=== PATIENT | female | born 1945 | race Caucasian/White ===

== ENCOUNTER → 2017-05-01 | Outpatient (REF) ==
[~2017-05-01] MED LIST: FERROUS SU325 MG/TAB PO; FOLIC ACID PO; HYDRALAZINE HCL25 MG PO; PRILOSEC 20MG20 MG PO; VITAMIN C250250 MG PO; ZOCOR40 MG PO
== END ==
LOC: ZLAB.WCH 11:12
DX: Z01.89 Encounter for other specified special examinations (principal)

== ENCOUNTER 2021-02-21 10:05 | Day surgery (SDC) | payer MEDICARE, OTHER ==
[2021-02-21] VITALS (13 sets, daily range): BP systolic 130–145; BP diastolic 61–80; PULSE 64–75; TEMP 97.7–98.6
[~2021-02-21] VITALS: Ht 172.7 cm; Wt 90.1 kg
[2021-02-21] MEDS ORDERED: EXCEDRIN1 TAB PO (11:23)
[2021-02-21] MEDS ORDERED: CITRACAL-D3 ER1 EACH PO (11:24)
[2021-02-21] MEDS ORDERED: ZOCOR 40MG40 MG PO (11:25)
[2021-02-21] MEDS ORDERED: KLOR-CON SPRIN10 MEQ PO (11:26)
[2021-02-21] MEDS ORDERED: MAXZIDE-25MG TA1 TAB PO (11:27)
[2021-02-21] MEDS ORDERED: PROTONIX 40MG T40 MG PO (11:28)
--- NOTE | 2021-02-21 17:23 | NUR ---
PT TO ROOM 330 PER BED WITH REPORT FROM [facility] PACU @0364. PT IS A/O X3, LUNGS CTA, 6 LAP SITES CDI WITH BANDAIDS. VSS ASSESSMENTS COMPLETE. PT HAVING SHOULDER PAIN. IV TO LF FOREARM.
--- NOTE | 2021-02-21 22:23 | NUR ---
PATIENT ALERT AND ORIENTED X4. PAIN TOLERABLE 3-/10. DENIES NAUSEA/VOMITING. AMBULATED TO BATHROOM WITH SBA. PATIENT OUT OF BED TO CHAIR. POST UP VITAL SIGNS COMPLETED. PATIENT TOLERATED CLEAR LIQUIDS DIET. ABDOMINAL DRESSING X6 CLEAN DRY AND INTACT. HYPOACTIVE BOWEL SOUNDS X 4 QUADRANTS. WILL CONTINUE TO MONITOR.
[2021-02-22 03:24] VITALS: BP 111/50; PULSE 61; TEMP 97.8
--- NOTE | 2021-02-22 06:23 | NUR ---
PATIENT AMBULATE AROUND UNIT X2 WITH STEADY GAIT. + FLATUS, DENIES NAUSEA/VOMITING. MILD PAIN TO ABDOMEN AND LEFT SHOULDER. REFUSED PAIN MEDICATION. WILL CONTINUE TO MONITOR.
[2021-02-22 07:22] VITALS: BP 106/45; PULSE 53; TEMP 97.6
--- NOTE | 2021-02-22 08:51 | NUR ---
PT RESTING IN BED. MINIMAL INCISIONAL PAIN. PT C/O GAS PAIN IN SHOULDERS. ENCOURAGED AMBULATION, PT ATE 100% OF FULL LIQUID TRAY. PT DENIES NEEDS. ABDOMINAL INCISIONS CDI WITH BANDAIDS OVER INCISIONS. PLAN ON DISCHARGE LATER TODAY.
--- NOTE | 2021-02-22 09:30 | NUR ---
Sw met with the pt to discuss discharge plan. Pt stated her preference to rturn home with , Zack (ph# [phone] or [phone]), once medically stable. Pt is independent on all ADL's and does not use any DME. The pt PCP is Dr.Jennifer Klein of [facility] and uses [facility] for short term use or [facility] for detention use of medications. Pt reports no difficulties obtaining her meds. The pt informed Sw that she does have a DPOA-HC and it was given to a nurse. Sw confirmed that it was in the binder chart. No other needs stated at this time. Sw to await further recommendations and follow up as needed. Discharge Plan: Home with , Zack.
--- NOTE | 2021-02-22 09:55 | NUR ---
Initial visit; Patient thanked Blister Pack Operator for looking in on her, offering God's blessings and states she is receptive to Blister Pack Operator keeping her in Blister Pack Operator's prayers.
[2021-02-22 11:20] VITALS: BP 133/66; PULSE 55; TEMP 97.8
[2021-02-22] MEDS ORDERED: NORCO 325 MG-51 TAB PO (12:38)
[2021-02-22] MEDS ORDERED: ZOFRAN 4MG T4 MG/TAB PO (12:39)
--- NOTE | 2021-02-22 15:00 | NUR ---
DISCHARGE INSTRUCTIONS PROVIDED TO PATIENT AND . QUESTIONS SOLICITED AND ANSWERED. PT LEFT AMBULATORY.
== END 2021-02-22 15:03 | disposition home or self-care (01) ==
LOC: SDCO 10:05 → SURG 17:14 → SDCO 02-22 15:03
DX: K44.9 Diaphragmatic hernia without obstruction or gangrene (principal); K31.89 Other diseases of stomach and duodenum; I10 Essential (primary) hypertension; E78.00 Pure hypercholesterolemia, unspecified; K21.9 Gastro-esophageal reflux disease without esophagitis; E78.5 Hyperlipidemia, unspecified; Z79.899 Other long term (current) drug therapy
CPT/HCPCS: OP; A9284; C1781; J0690; J1100; J1885; J2405; J2704; J3010; J7120

== ENCOUNTER 2021-03-16 06:44 | Inpatient (IN) | payer MEDICARE, OTHER ==
[~2021-03-16] VITALS: Ht 167.6 cm; Wt 82.5 kg
[~2021-03-16 06:44] MED LIST changes: +CITRACAL-D3 ER1 EACH PO; +EXCEDRIN1 TAB PO; +KLOR-CON SPRIN10 MEQ PO; +MAXZIDE-25MG TA1 TAB PO; +NORCO 325 MG-51 TAB PO; +PROTONIX 40MG T40 MG PO; +ZOCOR 40MG40 MG PO; +ZOFRAN 4MG T4 MG/TAB PO
--- NOTE | 2021-03-16 09:15 | NUR ---
Patient admitted to room 323. Spouse at bedside. Med rec, and admission assessment completed. Iv to Rac. Patietn dressed in gown. No current vomiting. Buddy reyes
--- NOTE | 2021-03-16 09:25 | NUR ---
notifed about patient arrival to room 323. He states he will place orders.
[2021-03-16 12:36] VITALS: BP 128/68; PULSE 62; TEMP 98.1
--- NOTE | 2021-03-16 12:54 | NUR ---
Patient up to the bathroom, denies the need for pain or nausea medication. Ivf started per orders.
[2021-03-16 13:35] LABS: BASO # 0.1 (0.0-0.2); BASO % 0.9 % (0.0-2.0); EOS % 0.2 % (0-4.0); GRAN # 4.7 (1.4-6.5); GRAN % 72.3 % (42.2-75.2); HEMATOCRIT 45.8 % (37.0-47.0); HEMOGLOBIN 15.5 g/dl (12.5-16.0); LYMPH # 1.3 (1.2-3.4); LYMPH % 19.2 % (20.0-51.0); MEAN CELL VOLUME 91 fl (80.0-100.0); MEAN CORPUSCULAR HEMOGLOBIN 31 pg (27.0-31.0); MEAN CORPUSCULAR HGB CONC 34 g/dl (33.0-37.0); MEAN PLATELET VOLUME 11.9 fl (7.4-10.4); MONO # 0.5 (0.1-0.6); MONO % 7.2 % (1.7-9.3); PLATELET COUNT 176 K/mm3 (130-400); RED BLOOD COUNT 5.04 M/mm3 (4.10-5.30); REDCELL DISTRIBUTION WIDTH-CV 12.3 % (11.5-14.5)
[2021-03-16 13:42] LABS: ALBUMIN 4.2 gm/dL (3.5-5.0); BILIRUBIN,TOTAL 1.5 mg/dL (0.0-1.0); CALCIUM 10.2 mg/dL (8.4-10.2); CREATININE, serum 0.98 (0.52-1.25); POTASSIUM 3.2 mmol/L (3.4-5.0); TOTAL PROTEIN 7.4 gm/dL (6.4-8.2)
[2021-03-16 16:00] VITALS: BP 147/75; PULSE 61; TEMP 97.9
--- NOTE | 2021-03-16 16:35 | NUR ---
rounded, orders obtained. gastrograffin swallow study completed. Spoke with [facility] about PPN orders. Potassium replacement started. Patietn Npo with sips and chips. Will monitor.
--- NOTE | 2021-03-16 19:12 | NUR ---
Patient resting in bed. Using her IS per orders. She remains NPo with ice chips. Denies nausea. New IVF started to [facility] for PPN and lipids. Iv in ac continues to ivf and k+ replacement. bedside report to manan
[2021-03-16 19:51] VITALS: BP 135/64; PULSE 57; TEMP 97.3
--- NOTE | 2021-03-16 20:30 | NUR ---
PT IN BED. IS ALERT AND ORIENTED X4. HAS IVF TO RIGHT AC INFUSING WITHOUT PROBLEM, PPN W/LIPIDS INFUSING TO LEFT FOREARM WITHOUT PROBLEM. DENIES PAIN, NO NAUSEA AT THIS TIME. TAKING SIPS/CHIPS DESIRED. WILL MONITOR FOR CHANGES.
[2021-03-16 23:39] VITALS: BP 133/65; PULSE 68; TEMP 97.6
--- NOTE | 2021-03-17 04:00 | NUR ---
UP TO BATHROOM WITH ASSIST OF 1, GAIT STEADY. VOIDS AND BACK TO BED. IVF TO RIGHT AC AND PROCALAMINE TO LEFT FOREARM INFUSING WITHOUT PROBLEM.
[2021-03-17 04:55] VITALS: BP 134/73; PULSE 67; TEMP 98.7
[2021-03-17 07:09] LABS: ALBUMIN 3.4 gm/dL (3.5-5.0); CALCIUM 9.2 mg/dL (8.4-10.2); CREATININE, serum 0.78 (0.52-1.25); MAGNESIUM 1.9 mg/dL (1.6-2.3); PHOSPHOROUS 3.2 mg/dL (2.5-4.5); POTASSIUM 3.6 mmol/L (3.4-5.0)
[2021-03-17 07:17] LABS: BASO # 0.1 (0.0-0.2); BASO % 1.1 % (0.0-2.0); EOS # 0.1 (0.0-0.7); EOS % 0.9 % (0-4.0); GRAN # 3.9 (1.4-6.5); GRAN % 68.3 % (42.2-75.2); HEMATOCRIT 41.5 % (37.0-47.0); LYMPH # 1.3 (1.2-3.4); LYMPH % 22.4 % (20.0-51.0); MEAN CELL VOLUME 90 fl (80.0-100.0); MEAN CORPUSCULAR HEMOGLOBIN 31 pg (27.0-31.0); MEAN CORPUSCULAR HGB CONC 34 g/dl (33.0-37.0); MEAN PLATELET VOLUME 12.4 fl (7.4-10.4); MONO # 0.4 (0.1-0.6); MONO % 6.9 % (1.7-9.3); PLATELET COUNT 145 K/mm3 (130-400); RED BLOOD COUNT 4.59 M/mm3 (4.10-5.30); REDCELL DISTRIBUTION WIDTH-CV 12.2 % (11.5-14.5)
[2021-03-17 07:24] VITALS: BP 128/65; PULSE 64; TEMP 98.3
--- NOTE | 2021-03-17 09:21 | NUR ---
Pt doing well this morning with minimal complaints. She reports feeling better than when coming in. Still tolerating the ice chips and sips. IV to her right AC started leaking. Will restart new IV. Dr Wiggins has been in to see patient, no new orders, will continue with ice chips for today.
--- NOTE | 2021-03-17 11:19 | NUR ---
resting inbed, bedside shift report received from CARI Alamo
[2021-03-17 12:00] VITALS: BP 139/68; PULSE 65; TEMP 98.5
--- NOTE | 2021-03-17 12:25 | NUR ---
in bed watching TV, heart rate strong and regular, lungs CTA, bowel sounds present, states she is not passing flatus but had very small BM, abdomen soft and obese, peripheral pulses present in 4 extremities, teacher vocational training equal, denies needs
--- NOTE | 2021-03-17 13:30 | NUR ---
in bed and appears to be sleeping, resp quiet and easy
[2021-03-17 15:28] VITALS: BP 134/78; PULSE 67; TEMP 98.8
--- NOTE | 2021-03-17 16:15 | NUR ---
watching TV and denies needs
--- NOTE | 2021-03-17 18:51 | NUR ---
bedde shift report given to CARI Muro
[2021-03-17 19:50] VITALS: BP 141/65; PULSE 59; TEMP 97.7
[2021-03-18] VITALS (7 sets, daily range): BP systolic 129–150; BP diastolic 62–70; PULSE 51–61; TEMP 97–99.1
--- NOTE | 2021-03-18 04:53 | NUR ---
RESTING QUIETLY. NO N/V. PT DENIES PAIN. ACTIVE BOWEL TONES. UP, INDEPENDENT IN ROOM.
--- NOTE | 2021-03-18 07:55 | NUR ---
Patient resting in bed. Minimal needs. Denies pain and nausea. Patient denies having flatus, but is belching. Voiding without troubles, denies having BMs. Ivf & PPN per orders. Scds. Will monitor.
[2021-03-18 08:07] LABS: CALCIUM 9.7 mg/dL (8.4-10.2); CREATININE, serum 0.77 (0.52-1.25); MAGNESIUM 1.9 mg/dL (1.6-2.3); PHOSPHOROUS 3.3 mg/dL (2.5-4.5); POTASSIUM 3.8 mmol/L (3.4-5.0)
--- NOTE | 2021-03-18 12:42 | NUR ---
Plan is to return home with Zack at . Patient reports that they reside in [place] and plan to return there. Patient indicated that she does not need any home health and her will support her care plan. Patient reports that Enrqiu[facility] Klein is her PCP . Patient reports that she is working with other specialist Dr. Pineda, Dr Riddle, Rosalie Lujan. Patient reports that she uses [facility] for short term medications and remote computer terminal operator mdications [facility]. Will follow for additional care concerns.
--- NOTE | 2021-03-18 14:52 | NUR ---
Patient resting in bed. Continues to deny pain & nausea. Patient had a shower, that she reports making her feel much better. Fresh linens provided. K+ replacement. Procalamine per orders. Will contiue to monitor.
--- NOTE | 2021-03-18 18:24 | NUR ---
Patient sitting up in chair watching TV, offered a walk in the halls, she was not interested. Denies pain & nausea. Tolerates ice chips. Will report off to nightnurse
[2021-03-19 03:42] VITALS: BP 138/74; PULSE 51; TEMP 97.7
--- NOTE | 2021-03-19 06:15 | NUR ---
PT DENIES PAIN. NO N/V. AFEBRILE. UP INDEPENDENTLY IN ROOM.
[2021-03-19 07:06] LABS: CALCIUM 9.6 mg/dL (8.4-10.2); CREATININE, serum 0.68 (0.52-1.25); PHOSPHOROUS 3.1 mg/dL (2.5-4.5); POTASSIUM 3.8 mmol/L (3.4-5.0)
[2021-03-19 07:20] VITALS: BP 143/79; PULSE 74; TEMP 97.4
--- NOTE | 2021-03-19 08:15 | NUR ---
Patient resting in bed. Independent to use the bathroom. Procalamine per orders. Will monitor.
--- NOTE | 2021-03-19 10:36 | NUR ---
Initial visit; Patient thanked Primary School Teacher Librarian for looking in on her and keeping her in Primary School Teacher Librarian's prayers.
--- NOTE | 2021-03-19 10:45 | NUR ---
rounded. plan of care reviewed. patient supportive spouse at bedside. k+ protocol dc-iv k+ was burning in patient IV.
[2021-03-19 11:36] VITALS: BP 130/66; PULSE 60; TEMP 97.4
--- NOTE | 2021-03-19 14:05 | NUR ---
Patient sitting up in chair. She tolerated popcicle. Bottled water ordered from kitchen, she does not like out water. Ran pain and nausea. Buddy reyes.
[2021-03-19 16:26] VITALS: BP 131/68; PULSE 59; TEMP 97.7
--- NOTE | 2021-03-19 17:42 | NUR ---
Patient sitting up in chair. She tolerated a glass of chicken broth. Visitiors at bedside. Lipids & procalamine per orders. Ambulated halls ways with patient & she did well. Continues to deny pain & nausea.
--- NOTE | 2021-03-19 19:25 | NUR ---
REPORT RECEIVED FROM NURSE RAI. PATIENT RECEIVED SITTING IN RECINER ALERT AND ORIENTED X4. DENIES ANY DISCOMFORT AT THIS TIME.
[2021-03-19 19:49] VITALS: BP 129/56; PULSE 59; TEMP 98.5
[2021-03-20 00:08] VITALS: BP 134/55; PULSE 52; TEMP 97.4
[2021-03-20 04:10] VITALS: BP 129/57; PULSE 52; TEMP 97.8
[2021-03-20 07:05] LABS: CALCIUM 9.8 mg/dL (8.4-10.2); CREATININE, serum 0.7 (0.52-1.25); MAGNESIUM 2.1 mg/dL (1.6-2.3); PHOSPHOROUS 3.6 mg/dL (2.5-4.5); POTASSIUM 4.1 mmol/L (3.4-5.0)
--- NOTE | 2021-03-20 07:23 | NUR ---
Patient resting in bed. Awake & alert. Patient provided with cranberry juice. She is interested in yogurt this am . Denies nausea. denies pain. Will continue to monitor.
[2021-03-20 08:44] VITALS: BP 133/87; PULSE 63; TEMP 97.5
--- NOTE | 2021-03-20 08:46 | NUR ---
Patient sitting up in chair, I ambulated halls stand by with patient & she did well. Discussed diet advanced to pureed. She does not want anything at this time.
[2021-03-20 09:59] LABS: BASO % 0.1 % (0.0-2.0); GRAN # 5.9 (1.4-6.5); GRAN % 81.6 % (42.2-75.2); HEMATOCRIT 43.9 % (37.0-47.0); HEMOGLOBIN 14.8 g/dl (12.5-16.0); LYMPH # 0.9 (1.2-3.4); MEAN CELL VOLUME 91 fl (80.0-100.0); MEAN CORPUSCULAR HEMOGLOBIN 31 pg (27.0-31.0); MEAN CORPUSCULAR HGB CONC 34 g/dl (33.0-37.0); MEAN PLATELET VOLUME 13.1 fl (7.4-10.4); MONO # 0.3 (0.1-0.6); MONO % 4.7 % (1.7-9.3); PLATELET COUNT 131 K/mm3 (130-400); RED BLOOD COUNT 4.85 M/mm3 (4.10-5.30); REDCELL DISTRIBUTION WIDTH-CV 11.9 % (11.5-14.5)
[2021-03-20 10:03] LABS: ALBUMIN 3.5 gm/dL (3.5-5.0); CALCIUM 9.7 mg/dL (8.4-10.2); CREATININE, serum 0.69 (0.52-1.25); PHOSPHOROUS 3.6 mg/dL (2.5-4.5); POTASSIUM 4.1 mmol/L (3.4-5.0)
--- NOTE | 2021-03-20 11:03 | NUR ---
Practice Performance Manager met with the patient and her . The patient is independent in the room and the discharge plan is to return home with spouse. *Discharge disposition: Home with spouse
--- NOTE | 2021-03-20 12:04 | NUR ---
Patient IV to wrist infiltrated, new IV to be started by warehouse order selector. I spoke to pharmacy they suggested cold pack to infiltration site of procalamine. I spoke to advanced IV services who told me to call pharmacy. Cold pack to wrist. Will monitor.
[2021-03-20 12:25] VITALS: BP 138/79; PULSE 50; TEMP 98.3
--- NOTE | 2021-03-20 15:48 | NUR ---
Patient tried tomato soup and did not tolerated well. She also had a jello & she reports it made her have "foam" again. Called kitchen to bring her a ensure clear. She has tried it and it going to sip on it. She continues to denies pain and nausea though.
[2021-03-20 15:49] VITALS: BP 117/62; PULSE 70; TEMP 98.7
--- NOTE | 2021-03-20 19:32 | NUR ---
Patient sitting up in chair. Aware of plan of care NPO 0000 for egd tmrw. She is tolerating clear liquid ensure taking it slowly. We ambulated halls and she did well. Continue with Procalamine & lipids per orders. Report to saturninourse
[2021-03-20 20:20] VITALS: BP 158/71; PULSE 53; TEMP 97.5
[2021-03-21] VITALS (12 sets, daily range): BP systolic 119–153; BP diastolic 64–90; PULSE 48–68; TEMP 97.3–98.7
--- NOTE | 2021-03-21 06:09 | NUR ---
PATIENT A+OX4, DENIES PAIN. INDEPENDENT IN ROOM. NO VENT OVER NIGHT. VSS, NO NAUSEA/VOMITING. NPO FOR EGD TODAY. CONTINUE ON PROCALAMINE INFUSION. WILL CONTINUE TO MONITOR.
[2021-03-21 06:53] LABS: BASO % 0.1 % (0.0-2.0); GRAN # 5.6 (1.4-6.5); GRAN % 82.4 % (42.2-75.2); HEMATOCRIT 43.9 % (37.0-47.0); HEMOGLOBIN 14.9 g/dl (12.5-16.0); LYMPH # 0.8 (1.2-3.4); MEAN CELL VOLUME 90 fl (80.0-100.0); MEAN CORPUSCULAR HEMOGLOBIN 31 pg (27.0-31.0); MEAN CORPUSCULAR HGB CONC 34 g/dl (33.0-37.0); MEAN PLATELET VOLUME 13.1 fl (7.4-10.4); MONO # 0.3 (0.1-0.6); MONO % 4.8 % (1.7-9.3); PLATELET COUNT 120 K/mm3 (130-400); RED BLOOD COUNT 4.87 M/mm3 (4.10-5.30); REDCELL DISTRIBUTION WIDTH-CV 11.9 % (11.5-14.5)
[2021-03-21 07:03] LABS: ALBUMIN 3.5 gm/dL (3.5-5.0); BILIRUBIN,TOTAL 0.6 mg/dL (0.0-1.0); CALCIUM 9.5 mg/dL (8.4-10.2); CREATININE, serum 0.67 (0.52-1.25); MAGNESIUM 2.1 mg/dL (1.6-2.3); PHOSPHOROUS 3.4 mg/dL (2.5-4.5); POTASSIUM 3.9 mmol/L (3.4-5.0); TOTAL PROTEIN 6.3 gm/dL (6.4-8.2)
[2021-03-21 07:12] LABS: PRE ALBUMIN 27.3 mg/dL (17.6-36.0)
--- NOTE | 2021-03-21 08:00 | NUR ---
PATIENT IS A&O. VSS. DENIES PAIN OR NAUSEA THIS AM. PATIENT SITTING UP IN BEDSIDE CHAIR. PPN INFUSING INTO LEFT HAND IV VIA PUMP. NPO FOR EGD TODAY. CONSENT SIGNED AND ON CHART. HEAD TO TOE ASSESSMENT COMPLETE. INDEPENDENT IN ROOM. CALL LIGHT IN REACH.
--- NOTE | 2021-03-21 12:35 | NUR ---
PATIENT GOING DOWN TO ENDO. CONSENT ON CHART. PRE-OP FLUIDS INFUSING VIA GRAVITY. PATIENT OFF FLOOR. AT BEDSIDE.
--- NOTE | 2021-03-21 14:00 | NUR ---
PATIENT BACK IN ROOM FROM [facility]. CHICKEN AND SOME MEDICATION COATING WAS REPORTED TO BE FOUND CAUGHT IN PATIENT ESOPHAGUS FROM THE LAST TIME SHE ATE, LAST FRIDAY. PATIENT ON STRICT LIQUID DIET X1 WEEK. RECOMMENDING LIQUID MEDS. VSS. HEAD TO TOE ASSESSMENT COMPLETE. PATIENT RESTING IN BED. AT BEDSIDE. CALL LIGHT IN REACH.
--- NOTE | 2021-03-21 19:06 | NUR ---
PATIENT FOUND RESTING IN BED. REPORT RECEIVED FROM NURSE DAYANA. PATIET ALERT AND ORIENTED. DENIES ANY DISCOMFORT AT THIS TIME. DENIES NAUSEA/VOMITING. TOLERATING CLEAR LIQUIDS. PATIENT IS INDEPENDENT IN ROOM. CALL LIGHT WITHIN REACH.
[2021-03-22 03:40] VITALS: BP 114/58; PULSE 61; TEMP 98.5
[2021-03-22 07:16] VITALS: BP 122/66; PULSE 65; TEMP 97.2
--- NOTE | 2021-03-22 08:00 | NUR ---
PATIENT IS A&O. VSS. DENIES PAIN OR NAUSEA. PATIENT ORDERED CLEAR LIQUID BREAKFAST. HEAD TO TOE ASSESSMENT WNL. INDENPENDENT IN ROOM. CALL LIGHT IN REACH. PATIENT RESTING UP IN BEDSIDE CHAIR. NO OTHER NEEDS AT THIS TIME.
--- NOTE | 2021-03-22 10:30 | NUR ---
PATIENT AMBULATING IN HALLS WITH . GAIT STEADY AND TOLERATING ACTIVITY WELL.
[2021-03-22 12:00] VITALS: BP 134/70; PULSE 57; TEMP 97.6
[2021-03-22 15:38] VITALS: BP 125/65; PULSE 64; TEMP 97.8
--- NOTE | 2021-03-22 19:24 | NUR ---
DISCHARGE INSTRUCTION EXPLAINED AND GIVEN TO PATIENT. SHE VERBALIZE UNDERSTANDING. IV ACCESS REMOVED. VSS ON DISCHARGE. PATIENT ALERT AND ORIENTED X4. PATIENT DISCHARGE HOME WITH BY .
== END 2021-03-22 19:00 | disposition home or self-care (01) | DRG 392 ==
LOC: MEDICAL 06:44 → SURG 08:34
PROVIDERS: Internal Medicine Gastroenterology; ADMIT Surgery
PROC: 0D738ZZ Dilation of Lower Esophagus, Via Natural or Artificial Opening Endoscopic (ICD-10-PCS; 2021-03-21)
PROC: 0DC58ZZ Extirpation of Matter from Esophagus, Via Natural or Artificial Opening Endoscopic (ICD-10-PCS; principal; 2021-03-21 12:30)
DX: R13.10 Dysphagia, unspecified (principal); N17.9 Acute kidney failure, unspecified; E44.0 Moderate protein-calorie malnutrition; K22.2 Esophageal obstruction; E87.6 Hypokalemia; T18.128A Food in esophagus causing other injury, initial encounter; Y83.8 Other surgical procedures as the cause of abnormal reaction of the patient, or of later complication, without mention of misadventure at the time of the procedure
CPT/HCPCS: OP; A9284; C1726; C9113; G0378; J1100; J2704; J3480; J7120